=== PATIENT | male | born 1965 | race American Indian/Alaskan Native ===

== ENCOUNTER 2017-03-12 13:11 | Emergency (ER) | payer SELFPAY ==
[2017-03-12 13:13] VITALS: O2SAT 100
[2017-03-12] MEDS ORDERED: Sodium Chloride 0.9% 1,000 ML IV ONE (13:22)
[2017-03-12 13:39] LABS: BASO % 0.4 % (0.0-2.0); EOS # 0.4 K/uL (0.0-0.7); EOS % 4.9 % (0.0-4.0); HEMATOCRIT 46.3 % (35.0-51.0); LYMPH # 2.3 K/uL (1.0-4.3); LYMPH % 29.9 % (20.0-40.0); MEAN CORPUSCULAR HEMOGLOBIN 31.1 pg (27.0-31.0); MEAN CORPUSCULAR HGB CONC 33.9 g/dL (33.0-37.0); MEAN PLATELET VOLUME 8.6 fL (7.2-11.7); MONO # 0.5 K/uL (0.0-0.8); MONO % 6.3 % (0.0-10.0); RED CELL DISTRIBUTION WIDTH 13.1 % (11.5-14.5); WHITE BLOOD COUNT 7.7 K/uL (4.8-10.8)
[2017-03-12] MEDS ORDERED: Sodium Chloride 0.9% 1,000 ML ONE (13:41)
--- NOTE | 2017-03-12 13:41 | C.PDOC ---
History Of Present Illness 51 yr old male with PMHx of alcoholism and anxiety, presents to the ER with complaints of crampy right abdominal pain for the past 2 days, associated with constipation. Patient admits to drinking daily. Denies history of pancreatitis, also denies fever, chills, chest pain, SOB, nausea, vomiting, dysuria, incontinence or back pain. Time Seen by Provider: 03/12/17 13:16 Chief Complaint (Nursing): Abdominal Pain History Per: Patient History/Exam Limitations: no limitations Onset/Duration Of Symptoms: Days (2) Current Symptoms Are (Timing): Still Present Past Medical History Reviewed: Historical Data, Nursing Documentation, Vital Signs Vital Signs: Last Vital Signs Temp 97.4 F L 03/12/17 14:25 Pulse 59 L 03/12/17 14:25 Resp 16 03/12/17 14:25 BP 111/73 03/12/17 14:25 Pulse Ox 100 03/12/17 14:44 - [facility] Procedures TETANUS TOXOID ADMINIST (11/16/12) Family History: States: No Known Family Hx - Social History Hx Tobacco Use: Yes Hx Alcohol Use: Yes ("3X A WEEK") Hx Substance Use: No (DENIED) - Immunization History Hx Tetanus Toxoid Vaccination: No Hx Influenza Vaccination: No Hx Pneumococcal Vaccination: No Review Of Systems Except As Marked, All Systems Reviewed And Found Negative. Constitutional: Negative for: Fever, Chills Cardiovascular: Negative for: Chest Pain Respiratory: Negative for: Shortness of Breath Gastrointestinal: Positive for: Abdominal Pain (Crampy, right sided abdominal pain), Constipation. Negative for: Nausea, Vomiting Genitourinary: Negative for: Dysuria, Incontinence Musculoskeletal: Negative for: Back Pain Physical Exam - Physical Exam Appears: Non-toxic, No Acute Distress, Other ((+) Think black male) Skin: Warm, Dry, No Rash Head: Atraumatic, Normacephalic Eye(s): bilateral: PERRL, EOMI, right: Other (Right lateral strabismus) Oral Mucosa: Moist Cardiovascular: Rhythm Regular, No Murmur Respiratory: Normal Breath Sounds, No Rales, No Rhonchi, No Stridor, No Wheezing Gastrointestinal/Abdominal: Soft, Tenderness (Right abdomin. Dull to percussion. ), No Guarding, No Rebound, Other ((-) Smith's. Mcburney's.) Back: Normal Inspection, No CVA Tenderness Extremity: Normal ROM, No Swelling Neurological/Psych: Oriented x3, Normal Speech, Normal Motor, Normal Sensation ED Course And Treatment - Laboratory Results Result Diagrams: 03/12/17 13:20 03/12/17 13:20 Lab Interpretation: Normal (ua neg.) O2 Sat by Pulse Oximetry: 100 (RA) Pulse Ox Interpretation: Normal - Radiology CXR: Interpreted by Me CXR Interpretation: Yes: No Acute Disease - Other Rad X-Ray - Obstructive Series X-Ray: Interpreted by Me, Viewed By Me Interpretation: +FOS Progress Note: toradol, IVF Reevaluation Time: 14:44 Reassessment Condition: Improved Medical Decision Making Medical Decision Making: PLAN: * X-Ray - Obstructive Series * Drug Screen * CBC * CMP * Urinalysis * Pepcid IVP * Toradol IVP * Sodium Chloride IV NOTE: normal w/u acute on chronic constip Disposition Doctor Will See Patient In The: Office Counseled Patient/Family Regarding: Studies Performed, Diagnosis - Disposition Referrals: Elpidio Maria MD [Staff Provider] - Disposition: HOME/ ROUTINE Disposition Time: 14:44 Condition: GOOD Additional Instructions: drink a bottle of Mag Citrate now, re-evaluate your abdminal discomfort after using the bathroom 2-3 times Repeat laxative as needed Continue daily stool softners as needed Diet: 7 fresh fruits and vegetables daily Drink plenty of water Follow-up w your PMD as needed. Prescriptions: Magnesium Citrate [[facility] Magnesium Citrate] 300 ml PO ONCE PRN #1 bottle PRN Reason: Constipation Instructions: Constipation (ED) Forms: [employer] (Turkmen) - Clinical Impression Clinical Impression: Abdominal colic - Scribe Statement The provider has reviewed the documentation as recorded by the Kaye James Provider Attestation: All medical record entries made by the [place]ibrebeca were at my direction and personally dictated by me. I have reviewed the chart and agree that the record accurately reflects my personal performance of the history, physical exam, medical decision making, and the department course for this patient. I have also personally directed, reviewed, and agree with the discharge instructions and disposition.
[2017-03-12 14:02] LABS: URINE BILIRUBIN NEGATIVE (NEGATIVE); URINE BLOOD NEGATIVE (NEGATIVE); URINE COLOR Yellow (YELLOW); URINE GLUCOSE (UA) NORMAL (Normal); URINE KETONE NEGATIVE (NEGATIVE); URINE LEUKOCYTE ESTERASE NEG Leu/uL (Negative); URINE PROTEIN NEGATIVE (NEGATIVE); URINE UROBILINOGEN NORMAL mg/dL (0.2-1.0); WBC URINE < 1 /hpf (0-5)
[2017-03-12 14:07] LABS: ALB/GLOB RATIO 1.8 (1.0-2.1); ALKALINE PHOSPHATASE 50 U/L (38-126); ALT/SGPT 36 U/L (21-72); AST/SGOT 19 U/L (17-59); BILIRUBIN,TOTAL 1.3 mg/dL (0.2-1.3); BLOOD UREA NITROGEN 18 mg/dL (9-20); CALCIUM 8.3 mg/dl (8.6-10.4); CARBON DIOXIDE 20 mmol/L (22-30); CHLORIDE 103 mmol/L (98-107); GFR AFRICAN-AMERICAN > 60; GLUCOSE,RANDOM 80 mg/dL (75-110); POTASSIUM 3.8 mmol/L (3.6-5.2); SODIUM 134 mmol/L (132-148); TOTAL PROTEIN 6.4 g/dL (6.3-8.3)
--- NOTE | 2017-03-12 14:52 | RAD ---
PROCEDURE: Radiographs of the chest and abdomen (obstructive series) HISTORY: abd pain COMPARISON: Comparison made with chest radiograph 04/25/2014 CT scan abdomen pelvis 03/16/2015. TECHNIQUE: AP radiograph of the chest, with upright and supine radiographs of the abdomen. FINDINGS: CHEST: Lung herbert clear. No infiltrate effusion or basilar pneumothorax. Mild hyperinflation however diaphragm double curve. Rule out COPD. Heart size within range of normal. No free air seen under the diaphragmatic surfaces. ABDOMEN AND PELVIS: Large amount stool seen throughout colon consistent with fecal retention/constipation. No evidence of acute mechanical bowel obstruction Multiple small calcifications seen within the left and to a lesser degree right inferior true pelvis likely representing calcified pelvic phleboliths. IMPRESSION: No evidence of acute cardiopulmonary disease however mild hyperinflation suggests underlying COPD ; clinical correlation recommended. . Findings consistent with fecal retention/constipation. No evidence of acute mechanical bowel obstruction or free intraperitoneal air.
[2017-03-12 15:04] VITALS: BP 111/73; PULSE 59; RESP 16; TEMP 97.4
== END 2017-03-12 15:30 | disposition home or self-care (01) ==
LOC: C.ER 13:11
DX: R10.84 Generalized abdominal pain (principal)
CPT/HCPCS: 74022; 80053; 81001; 83690; 85025; 96361; 96374; 96375; 99284; G0480; J1885; J7040

== ENCOUNTER 2017-11-23 17:19 | Emergency (ER) | payer SELFPAY ==
[2017-11-23 17:52] LABS: BASO % 0.4 % (0.0-2.0); EOS # 0.4 K/uL (0.0-0.7); EOS % 5.3 % (0.0-4.0); HEMOGLOBIN 16.3 g/dL (12.0-18.0); LYMPH % 26.8 % (20.0-40.0); MEAN CELL VOLUME 92.1 fL (80.0-94.0); MEAN CORPUSCULAR HEMOGLOBIN 32.5 pg (27.0-31.0); MEAN CORPUSCULAR HGB CONC 35.3 g/dL (33.0-37.0); MEAN PLATELET VOLUME 8.4 fL (7.2-11.7); MONO # 0.5 K/uL (0.0-0.8); MONO % 6.4 % (0.0-10.0); NEUT # 4.5 K/uL (1.8-7.0); NEUT % 61.1 % (50.0-75.0); NRBC % 0.2 % (0.0-2.0); RBC 5.03 Mil/uL (4.40-5.90); RED CELL DISTRIBUTION WIDTH 13.3 % (11.5-14.5); WHITE BLOOD COUNT 7.3 K/uL (4.8-10.8)
[2017-11-23 18:09] LABS: ALB/GLOB RATIO 1.6 (1.0-2.1); ALBUMIN 4.3 g/dL (3.5-5.0); ALT/SGPT 30 U/L (21-72); AST/SGOT 25 U/L (17-59); BLOOD UREA NITROGEN 12 mg/dL (9-20); CALCIUM 9.5 mg/dl (8.6-10.4); GFR AFRICAN-AMERICAN > 60; GFR NON-AFRICAN AMERICAN > 60
[2017-11-23] MEDS: Sodium Chloride 0.9% 1,000 ML IV SCH (18:10)
[2017-11-23] MEDS ORDERED: Sodium Chloride 0.9% 1,000 ML ONE (18:10)
--- NOTE | 2017-11-23 18:21 | RAD ---
Date of service: 11/23/2017 PROCEDURE: CHEST RADIOGRAPH, 1 VIEW HISTORY: chest pain COMPARISON: GoNone available. FINDINGS: LUNGS: Clear. PLEURA: No pneumothorax or pleural fluid seen. CARDIOVASCULAR: No radiographic findings to suggest acute or significant cardiovascular disease. OSSEOUS STRUCTURES: No significant abnormalities. VISUALIZED UPPER ABDOMEN: Normal. OTHER FINDINGS: None. IMPRESSION: No active disease.
--- NOTE | 2017-11-23 20:09 | C.PDOC ---
History Of Present Illness 51yo male, comes to ER complaining of epigastric pain radiating to his chest for the past several days. Patient states he has a history of GERD as well. Currently, he denies any chest pain, shortness of breath, fever or cough. He denies any history of cardiac abnormalities. Time Seen by Provider: 11/23/17 17:20 Chief Complaint (Nursing): Chest Pain History Per: Patient History/Exam Limitations: no limitations Onset/Duration Of Symptoms: Days Current Symptoms Are (Timing): Still Present Associated Symptoms: denies: Nausea, Dyspnea, Diaphoresis, Syncope Past Medical History Reviewed: Historical Data, Nursing Documentation, Vital Signs Vital Signs: Last Vital Signs Temp 97 F L 11/23/17 20:31 Pulse 60 11/23/17 20:31 Resp 16 11/23/17 20:31 BP 116/75 11/23/17 20:31 Pulse Ox 99 11/23/17 20:31 - Medical History PMH: No Chronic Diseases Denies: CAD, Cardia Arrhythmia, Cardiac Aneurysm, HTN, Hypercholesterolemia, Hyperlipidemia Surgical History: No Surg Hx - [facility] Procedures TETANUS TOXOID ADMINIST (11/16/12) Family History: Denies: CA, CAD, Diabetes, Hypertension - Social History Hx Tobacco Use: Yes Hx Alcohol Use: Yes (DAILY, 48 OZ OF BEER) Hx Substance Use: Yes - Immunization History Hx Tetanus Toxoid Vaccination: No Hx Influenza Vaccination: No Hx Pneumococcal Vaccination: No Review Of Systems Except As Marked, All Systems Reviewed And Found Negative. Constitutional: Negative for: Fever, Chills Cardiovascular: Positive for: Chest Pain (now resolved). Negative for: Light Headedness Respiratory: Negative for: Cough, Shortness of Breath Gastrointestinal: Positive for: Abdominal Pain (epigastric) Musculoskeletal: Negative for: Back Pain Neurological: Negative for: Dizziness Physical Exam - Physical Exam Appears: Non-toxic, No Acute Distress Skin: Normal Color, Warm, Dry Head: Atraumatic, Normacephalic Eye(s): bilateral: Normal Inspection Neck: Normal ROM, Supple Chest: Symmetrical Cardiovascular: Rhythm Regular Respiratory: Normal Breath Sounds Gastrointestinal/Abdominal: Soft, No Tenderness Back: Normal Inspection Extremity: Normal ROM Neurological/Psych: Oriented x3 ED Course And Treatment - Laboratory Results Result Diagrams: 11/23/17 17:42 11/23/17 17:42 ECG: Interpreted By Me, Viewed By Me ECG Rhythm: Sinus Rhythm Interpretation Of ECG: normal intervals, normal axis, no ST/T changes Rate From EC O2 Sat by Pulse Oximetry: 96 (RA) Pulse Ox Interpretation: Normal Medical Decision Making Medical Decision Making: Plan: -- Labs -- EKG -- CXR -- Pepcid 20mg IVP -- IV Fluids Disposition - Disposition Referrals: Elpidio Maria MD [Staff Provider] - Disposition: HOME/ ROUTINE Disposition Time: 19:10 Condition: IMPROVED Additional Instructions: FER VALENCIA, thank you for letting us take care of you today. The emergency medical care you received today was directed at your acute symptoms. If you were prescribed any medication, please fill it and take as directed. It may take several days for your symptoms to resolve. Return to the Emergency Department if your symptoms worsen, do not improve, or if you have any other problems. Please contact your doctor or call one of the physicians/clinics you have been referred to that are listed on the Patient Visit Information form that is included in your discharge packet. Bring any paperwork you were given at discharge with you along with any medications you are taking to your follow up visit. Our treatment cannot replace ongoing medical care by a primary care provider outside of the emergency department. Thank you for allowing the [facility] team to be part of your care today. Follow up with your primary care doctor in 2-3 days for re-evaluation and further management. Instructions: Chest Pain That Is Not Caused by the Heart (DC) Forms: [employer] (Setswana) - Clinical Impression Clinical Impression: Gastritis - Scribe Statement The provider has reviewed the documentation as recorded by the Kaye Harman Provider Attestation: All medical record entries made by the [place] were at my direction and personally dictated by me. I have reviewed the chart and agree that the record accurately reflects my personal performance of the history, physical exam, medical decision making, and the department course for this patient. I have also personally directed, reviewed, and agree with the discharge instructions and disposition.
[2017-11-23 20:32] VITALS: BP 116/75; PULSE 60; RESP 16; TEMP 97
[2017-11-24 00:47] VITALS: O2SAT 96
== END 2017-11-23 20:32 | disposition home or self-care (01) ==
LOC: C.ER 17:19
DX: K29.70 Gastritis, unspecified, without bleeding (principal); Z72.0 Tobacco use
CPT/HCPCS: 71045; 80053; 83690; 84484; 85025; 96374; 99285; J7030